=== PATIENT | male | born 1990 | race Caucasian/White ===

== ENCOUNTER 2020-12-16 03:45 | Emergency (ER) | payer BC ==
[~2020-12-16] VITALS: Ht 177.8 cm; Wt 124.7 kg
[2020-12-16 03:56] VITALS: BP 111/83
--- NOTE | 2020-12-16 04:00 | NUR ---
30 YO MALE BIBA FOR OVERDOSE ON COCAINE AND XANAX. PT STATES THAT HE DID NOT KNOW THAT HE WAS SNORTING XANAX INSTEAD OF COCAINE. NO PHM AND NO RX
[2020-12-16 05:17] VITALS: BP 111/83
--- NOTE | 2020-12-16 05:17 | NUR ---
Patient discharged with v/s stable. Written and verbal after care instructions given and explained. Patient verbalized understanding. Ambulatory with steady gait. All questions addressed prior to discharge. Advised to follow up with PMD.
== END 2020-12-16 05:17 | disposition home or self-care (01) ==
LOC: MED 03:45
DX: T40.5X1A Poisoning by cocaine, accidental (unintentional), initial encounter (principal); R53.83 Other fatigue; F17.210 Nicotine dependence, cigarettes, uncomplicated; Y92.89 Other specified places as the place of occurrence of the external cause
CPT/HCPCS: 93005; 99283